=== PATIENT | male | born 1990 ===

== ENCOUNTER 2020-10-13 17:42 | Outpatient (CLI) | payer BC ==
--- NOTE | 2020-10-14 12:26 | SJPRAD ---
3 VIEWS RIGHT HAND: Date: 10/13/2020 HISTORY: Right thumb injury with pain. FINDINGS: Three views of the right hand shows tiny ossific fragments along the metacarpophalangeal joint of the thumb. These are nonspecific and may be remote. No definite donor site for these ossific fragments i s seen. No dislocation is seen. Mild soft tissue swelling of the thumb is seen. IMPRESSION: Small ossific fragments along the metacarpophalangeal joint of the thumb are nonspecific. These could represent small avulsion fracture fragments that could be acute or chronic. POS: NASIR
== END 2020-10-13 17:43 | disposition home or self-care (01) ==
LOC: SCSRAD 17:42
PROVIDERS: ATTEND Nurse Practitioner Family
DX: S69.91XA Unspecified injury of right wrist, hand and finger(s), initial encounter (principal)
CPT/HCPCS: 87635; U0003